=== PATIENT | female | born 1955 | race Caucasian/White ===

== ENCOUNTER 2018-03-16 16:52 | Inpatient (IN) ==
[2018-03-16 18:58] LABS: Basophils # 0.1 10*3/uL (0.0-0.2); Basophils % 0.5 % (0.0-0.8); Eosinophils % 0.3 % (0.00-10.9); Hematocrit 39.2 VOL% (35.7-47.0); Hemoglobin 12.7 GM/DL (12.0-16.0); Immature Granulocytes % 0.5 %; Immature Granulocytes Absolute 0.08 #; Lymphocytes # 3.1 10*3/uL (1.4-4.0); Lymphocytes % 21.4 % (21.3-54.2); Mean Corpuscular HGB Conc 32.4 GM/DL (32-36); Mean Corpuscular Hemoglobin 30 PG (27-34); Mean Platelet Volume 9.5 FL (9.6-12.0); Monocytes # 1.2 10*3/uL (0.11-0.8); Monocytes % 7.9 % (1.7-12.7); Neutrophils # 10.1 10*3/uL (1.4-7.4); Neutrophils % 69.4 % (38.7-73.9); Platelet Count 311 T/CUMM (130-400); Red Blood Count 4.31 MC/CUMM (3.8-5.5); Red Cell Distribution Width 14.6 % (9.3-17.3); White Blood Count 14.6 T/CUMM (4-12)
[2018-03-16 19:09] LABS: INR 2.5; PT Patient Result 25.1 SECS; Partial Thromboplastin Time 41.1 SECS (0-40)
[2018-03-16 19:23] LABS: Calcium 8.5 MG/DL (8.5-10.1); Osmolality,Calculated 266.2 MOS/KG (273-304); Potassium 4.1 MMOL/L (3.5-5.1)
[2018-03-16] MEDS ORDERED: ONDANSETRON 4 MG/2 ML VIAL IV STA (19:36)
[2018-03-16] MEDS ORDERED: HYDROmorphone 2 MG/1 ML VIAL IV STA (19:36)
[2018-03-16] MEDS ORDERED: ONDANSETRON 4 MG/2 ML VIAL IV PRN (20:11)
[2018-03-16 22:41] LABS: Apearance,Urine CLEAR (Clear); Bilirubin,Urine Negative (Negative); Blood, Urine Moderate mg/dL (Negative); Glucose,Urine (UA) Negative (Negative); Ketones,Urine Negative (Negative); Nitrite,Urine Negative (Negative); Protein,Urine Negative; RBC,Urine <1 /HPF (0-4); Squamous Epithelial Cell,Urine Occasional /HPF (0-10); Urine Color Straw (Yellow); Urine Specific Gravity 1.034 (1.001-1.035); Urine Urobilinogen < 2.0 EU/DL (0.2-1.0)
[2018-03-16] MEDS: traZODone 50 MG TABLET PO SCH (23:38)
[2018-03-16] MEDS: ROSUVASTATIN 20 MG TABLET PO SCH (23:39)
[2018-03-16] MEDS: POLYETHYLENE GLYCOL POWDER 17 GM PACK PO SCH (23:39)
[2018-03-16] MEDS: CYCLOBENZAPRINE 10 MG TABLET PO SCH (23:39)
[2018-03-16] MEDS: PREGABALIN 50 MG CAPSULE PO SCH (23:39)
[2018-03-16] MEDS: tiZANidine 4 MG TABLET PO SCH (23:39)
[2018-03-17 04:49] LABS: Basophils % 0.4 % (0.0-0.8); Eosinophils # 0.1 10*3/uL (0.0-0.87); Eosinophils % 0.9 % (0.00-10.9); Hemoglobin 13.2 GM/DL (12.0-16.0); Immature Granulocytes % 0.3 %; Immature Granulocytes Absolute 0.03 #; Lymphocytes # 2.1 10*3/uL (1.4-4.0); Lymphocytes % 20.6 % (21.3-54.2); Mean Corpuscular Hemoglobin 30 PG (27-34); Mean Corpuscular Volume 89.9 FL (87-102); Mean Platelet Volume 9.5 FL (9.6-12.0); Monocytes % 9.8 % (1.7-12.7); Platelet Count 309 T/CUMM (130-400); Red Blood Count 4.45 MC/CUMM (3.8-5.5); Red Cell Distribution Width 14.6 % (9.3-17.3); White Blood Count 10.3 T/CUMM (4-12)
[2018-03-17 05:01] LABS: INR 2.1
[2018-03-17 05:04] LABS: PT Patient Result 21.5 SECS
[2018-03-17] MEDS: CYCLOBENZAPRINE 10 MG TABLET PO SCH ×3 (05:13→21:07)
[2018-03-17] MEDS: tiZANidine 4 MG TABLET PO SCH ×3 (05:13→20:34)
[2018-03-17] MEDS: PANTOPRAZOLE 40 MG TABLET PO SCH (05:13)
[2018-03-17 05:15] LABS: Calcium 8.4 MG/DL (8.5-10.1); Osmolality,Calculated 277.5 MOS/KG (273-304); Potassium 3.7 MMOL/L (3.5-5.1)
[2018-03-17] MEDS ORDERED: METOPROLOL SUCCINATE XL 100 MG TABLET PO SCH (09:30)
[2018-03-17] MEDS ORDERED: METHYLPHENIDATE HCL 30 MG PO SCH (09:30)
[2018-03-17] MEDS ORDERED: DILTIAZEM CD 180 MG CAPSULE PO SCH (09:30)
[2018-03-17] MEDS: DOCUSATE SODIUM 100 MG/10 ML UDCUP PO SCH ×2 (11:28→11:34)
[2018-03-17] MEDS: GABAPENTIN 300 MG CAPSULE PO SCH ×2 (11:29→20:34)
[2018-03-17] MEDS: FOLIC ACID 1 MG TABLET PO SCH (11:29)
[2018-03-17] MEDS: POTASSIUM CHLORIDE 8 MEQ CAPSULE PO SCH (11:29)
[2018-03-17] MEDS: CETIRIZINE 10 MG TABLET PO SCH (11:29)
[2018-03-17] MEDS: FUROSEMIDE 20 MG TABLET PO SCH (11:29)
[2018-03-17] MEDS: ESCITALOPRAM 10 MG TABLET PO SCH (11:30)
[2018-03-17] MEDS: POLYVINYL ALCOHOL 1.4% OPH SOLN 15 ML BOTTLE BOTH EYES SCH ×2 (11:39→17:45)
[2018-03-17] MEDS: diphenhydrAMINE CAP 25 MG CAPSULE PO PRN (13:07)
[2018-03-17] MEDS ORDERED: diphenhydrAMINE CAP 25 MG CAPSULE PO ONE (14:33)
[2018-03-17] MEDS ORDERED: WARFARIN 2.5 MG TABLET PO SCH (17:00)
[2018-03-17] MEDS: MEPERIDINE 50 MG TABLET PO PRN (18:21)
[2018-03-17] MEDS: POLYETHYLENE GLYCOL POWDER 17 GM PACK PO SCH (20:34)
[2018-03-17] MEDS: ROSUVASTATIN 20 MG TABLET PO SCH (20:34)
[2018-03-17] MEDS: traZODone 50 MG TABLET PO SCH (20:34)
[2018-03-17] MEDS: PREGABALIN 50 MG CAPSULE PO SCH (20:34)
[2018-03-18] MEDS: MEPERIDINE 50 MG TABLET PO PRN ×3 (01:22→20:25)
[2018-03-18] MEDS: CYCLOBENZAPRINE 10 MG TABLET PO SCH ×3 (06:01→21:09)
[2018-03-18] MEDS: PANTOPRAZOLE 40 MG TABLET PO SCH (06:01)
[2018-03-18] MEDS: tiZANidine 4 MG TABLET PO SCH ×3 (06:02→20:19)
[2018-03-18 08:03] LABS: Basophils # 0.1 10*3/uL (0.0-0.2); Basophils % 0.4 % (0.0-0.8); Eosinophils # 0.2 10*3/uL (0.0-0.87); Eosinophils % 1.3 % (0.00-10.9); Hematocrit 37.9 VOL% (35.7-47.0); Hemoglobin 12.7 GM/DL (12.0-16.0); Immature Granulocytes % 0.5 %; Immature Granulocytes Absolute 0.08 #; Lymphocytes # 2.5 10*3/uL (1.4-4.0); Lymphocytes % 14.5 % (21.3-54.2); Mean Corpuscular HGB Conc 33.5 GM/DL (32-36); Mean Corpuscular Hemoglobin 30 PG (27-34); Mean Corpuscular Volume 89.4 FL (87-102); Monocytes # 1.5 10*3/uL (0.11-0.8); Monocytes % 8.6 % (1.7-12.7); Neutrophils # 12.7 10*3/uL (1.4-7.4); Neutrophils % 74.7 % (38.7-73.9); Platelet Count 326 T/CUMM (130-400); Red Blood Count 4.24 MC/CUMM (3.8-5.5); Red Cell Distribution Width 14.6 % (9.3-17.3); White Blood Count 16.9 T/CUMM (4-12)
[2018-03-18 08:11] LABS: INR 1.6; PT Patient Result 16.9 SECS
[2018-03-18 08:28] LABS: Calcium 8.7 MG/DL (8.5-10.1); Osmolality,Calculated 272.1 MOS/KG (273-304); Potassium 3.9 MMOL/L (3.5-5.1)
[2018-03-18] MEDS ORDERED: MEPERIDINE 50 MG TABLET PO PRN (08:42)
[2018-03-18] MEDS: POTASSIUM CHLORIDE 8 MEQ CAPSULE PO SCH (08:59)
[2018-03-18] MEDS: POLYVINYL ALCOHOL 1.4% OPH SOLN 15 ML BOTTLE BOTH EYES SCH ×2 (08:59→17:32)
[2018-03-18] MEDS: GABAPENTIN 300 MG CAPSULE PO SCH ×2 (09:00→20:19)
[2018-03-18] MEDS: CETIRIZINE 10 MG TABLET PO SCH (09:01)
[2018-03-18] MEDS: diphenhydrAMINE CAP 25 MG CAPSULE PO PRN (09:01)
[2018-03-18] MEDS: FUROSEMIDE 20 MG TABLET PO SCH (09:02)
[2018-03-18] MEDS: FOLIC ACID 1 MG TABLET PO SCH (09:02)
[2018-03-18] MEDS: DOCUSATE SODIUM 100 MG/10 ML UDCUP PO SCH (09:13)
[2018-03-18] MEDS: DILTIAZEM CD 240 MG CAPSULE PO SCH (10:51)
[2018-03-18] MEDS: METOPROLOL TARTRATE 50 MG TABLET PO SCH ×2 (10:52→20:19)
[2018-03-18] MEDS: ESCITALOPRAM 10 MG TABLET PO SCH (10:52)
[2018-03-18] MEDS ORDERED: WARFARIN 3 MG TABLET PO SCH (17:00)
[2018-03-18] MEDS: ROSUVASTATIN 20 MG TABLET PO SCH (20:19)
[2018-03-18] MEDS: PREGABALIN 50 MG CAPSULE PO SCH (20:19)
[2018-03-18] MEDS: traZODone 50 MG TABLET PO SCH (20:19)
[2018-03-18] MEDS: POLYETHYLENE GLYCOL POWDER 17 GM PACK PO SCH (20:19)
[2018-03-19] MEDS: MEPERIDINE 50 MG TABLET PO PRN ×2 (03:25→11:34)
[2018-03-19 04:38] LABS: Basophils # 0.1 10*3/uL (0.0-0.2); Basophils % 0.4 % (0.0-0.8); Eosinophils # 0.5 10*3/uL (0.0-0.87); Eosinophils % 3.1 % (0.00-10.9); Hematocrit 33.5 VOL% (35.7-47.0); Hemoglobin 10.9 GM/DL (12.0-16.0); Immature Granulocytes % 0.6 %; Immature Granulocytes Absolute 0.09 #; Lymphocytes # 2.8 10*3/uL (1.4-4.0); Lymphocytes % 18.8 % (21.3-54.2); Mean Corpuscular HGB Conc 32.5 GM/DL (32-36); Mean Corpuscular Hemoglobin 30 PG (27-34); Mean Corpuscular Volume 90.8 FL (87-102); Mean Platelet Volume 9.9 FL (9.6-12.0); Monocytes # 1.7 10*3/uL (0.11-0.8); Monocytes % 11.4 % (1.7-12.7); Neutrophils # 9.6 10*3/uL (1.4-7.4); Neutrophils % 65.7 % (38.7-73.9); Platelet Count 302 T/CUMM (130-400); Red Blood Count 3.69 MC/CUMM (3.8-5.5); Red Cell Distribution Width 14.6 % (9.3-17.3); White Blood Count 14.7 T/CUMM (4-12)
[2018-03-19 04:47] LABS: INR 1.5; PT Patient Result 15.6 SECS
[2018-03-19 05:14] LABS: Calcium 8.1 MG/DL (8.5-10.1); Osmolality,Calculated 267.2 MOS/KG (273-304); Potassium 3.1 MMOL/L (3.5-5.1)
[2018-03-19] MEDS: tiZANidine 4 MG TABLET PO SCH ×2 (05:44→13:52)
[2018-03-19] MEDS: PANTOPRAZOLE 40 MG TABLET PO SCH (05:44)
[2018-03-19] MEDS: CYCLOBENZAPRINE 10 MG TABLET PO SCH ×2 (05:44→13:51)
[2018-03-19] MEDS ORDERED: METHOTREXATE 2.5 MG TABLET PO SCH (09:00)
[2018-03-19] MEDS: DILTIAZEM CD 240 MG CAPSULE PO SCH (09:05)
[2018-03-19] MEDS: CETIRIZINE 10 MG TABLET PO SCH (09:06)
[2018-03-19] MEDS: FOLIC ACID 1 MG TABLET PO SCH (09:06)
[2018-03-19] MEDS: ESCITALOPRAM 10 MG TABLET PO SCH (09:06)
[2018-03-19] MEDS: DOCUSATE SODIUM 100 MG/10 ML UDCUP PO SCH (09:06)
[2018-03-19] MEDS: POTASSIUM CHLORIDE 8 MEQ CAPSULE PO SCH (09:06)
[2018-03-19] MEDS: FUROSEMIDE 20 MG TABLET PO SCH (09:06)
[2018-03-19] MEDS: METOPROLOL TARTRATE 50 MG TABLET PO SCH (09:06)
[2018-03-19] MEDS: GABAPENTIN 300 MG CAPSULE PO SCH (09:07)
[2018-03-19] MEDS: POLYVINYL ALCOHOL 1.4% OPH SOLN 15 ML BOTTLE BOTH EYES SCH (09:09)
[2018-03-19] MEDS ORDERED: POTASSIUM CHLORIDE 20 MEQ TABLET PO ONE (09:24)
[2018-03-19 11:26] VITALS: BP 118/60
== END 2018-03-19 14:45 | DRG 563 ==
LOC: EDUNIT# → N.ED 16:52 → N.EDINP 20:06 → N.3E 21:40
PROVIDERS: ADMIT Internal Medicine; ATTEND Internal Medicine

== ENCOUNTER 2020-09-29 08:43 | Inpatient (IN) ==
[2020-09-29 09:48] LABS: Basophils % 0.5 % (0.0-0.8); Hematocrit 40.1 VOL% (35.7-47.0); Hemoglobin 13.1 GM/DL (12.0-16.0); Immature Granulocytes Absolute 0.04 #; Lymphocytes # 1.9 10*3/uL (1.4-4.0); Lymphocytes % 49.7 % (21.3-54.2); Mean Corpuscular HGB Conc 32.7 GM/DL (32-36); Mean Corpuscular Volume 90.5 FL (87-102); Mean Platelet Volume 9.5 FL (9.6-12.0); Monocytes % 10.4 % (1.7-12.7); Neutrophils % 38.4 % (38.7-73.9); Platelet Count 210 T/CUMM (130-400); Red Blood Count 4.43 MC/CUMM (3.8-5.5); Red Cell Distribution Width 14.3 % (9.3-17.3); White Blood Count 3.8 T/CUMM (4-12)
[2020-09-29] MEDS ORDERED: PIPERACILLIN/TAZOBACTAM 3,375 MG in SODIUM CHLORIDE 0.9% 100 ML IV STA (09:59)
[2020-09-29 10:08] LABS: Atypical Lymphocytes Few; Hypochromasia 1+; Lymphocytes 46 % (20-55); Microcytosis Slight; Platelet Estimate Adequate; Segmented Neutrophils 48 % (50-85); Total Cells Counted 100
[2020-09-29 10:16] LABS: PT Patient Result 65.6 SECS (9.8-11.9); Partial Thromboplastin Time 98.2 SECS (23.9-33.8)
[2020-09-29 10:51] LABS: INR 6.8
[2020-09-29 10:54] LABS: Bacteria,Urine Moderate /HPF (Few); Bilirubin,Urine Negative (Negative); Blood, Urine Small mg/dL (Negative); Glucose,Urine (UA) Negative (Negative); Ketones,Urine 5 mg/dL (Negative); Mucus,Urine Occasional /LPF (Occasional); Nitrite,Urine Negative (Negative); Protein,Urine Negative; Squamous Epithelial Cell,Urine Occasional /HPF (0-10); Urine Appearance CLOUDY (Clear); Urine Color Amber (Yellow); Urine Specific Gravity 1.018 (1.001-1.035); Urine Urobilinogen < 2.0 EU/DL (0.2-1.0); WBC,Urine 37 /HPF (0-6)
[2020-09-29 11:01] LABS: Albumin 2.8 G/DL (3.4-5.0); Bilirubin,Total 0.5 MG/DL (0.2-1.0); Calcium 8.8 MG/DL (8.5-10.1); Osmolality,Calculated 269.1 MOS/KG (273-304); Thyroid Stimulating Hormone 0.423 uIU/ml (0.358-3.74); Total Protein 7.6 G/DL (6.4-8.3)
[2020-09-29] MEDS ORDERED: ONDANSETRON 4 MG/2 ML VIAL IV PRN (11:34)
[2020-09-29] MEDS ORDERED: DOCUSATE SODIUM 100 MG CAPSULE PO PRN (11:34)
[2020-09-29] MEDS ORDERED: GLUCAGON 1 MG VIAL IM PRN (11:34)
[2020-09-29] MEDS ORDERED: DEXTROSE 50% 25 GM/50 ML VIAL IV PRN (11:34)
[2020-09-29] MEDS ORDERED: LACTULOSE 20 GM/30 ML UDCUP PO PRN (11:34)
[2020-09-29] MEDS: PIPERACILLIN/TAZOBACTAM 3,375 MG in SODIUM CHLORIDE 0.9% 100 ML IV SCH (18:09)
[2020-09-29] MEDS: ROSUVASTATIN 20 MG TABLET PO SCH (21:30)
[2020-09-29] MEDS: ASCORBIC ACID 500 MG TABLET PO SCH (21:30)
[2020-09-30] MEDS: ACETAMINOPHEN 325 MG TABLET PO PRN (01:29)
[2020-09-30 01:44] LABS: Albumin 2.6 G/DL (3.4-5.0); Bilirubin,Total 0.6 MG/DL (0.2-1.0); Calcium 8.4 MG/DL (8.5-10.1); Ferritin 1532.8 ng/ml (8-252); Osmolality,Calculated 267.1 MOS/KG (273-304); Risk Ratio 3.09
[2020-09-30 01:46] LABS: PT Patient Result 58.2 SECS (9.8-11.9)
[2020-09-30 02:02] LABS: Basophils % 0.2 % (0.0-0.8); Hematocrit 38.9 VOL% (35.7-47.0); Hemoglobin 12.8 GM/DL (12.0-16.0); Immature Granulocytes % 1.2 %; Immature Granulocytes Absolute 0.06 #; Lymphocytes # 1.6 10*3/uL (1.4-4.0); Mean Corpuscular HGB Conc 32.9 GM/DL (32-36); Mean Platelet Volume 9.7 FL (9.6-12.0); Monocytes % 13.2 % (1.7-12.7); Neutrophils % 53.4 % (38.7-73.9); Platelet Count 227 T/CUMM (130-400); Red Blood Count 4.32 MC/CUMM (3.8-5.5); Red Cell Distribution Width 13.8 % (9.3-17.3); White Blood Count 5.1 T/CUMM (4-12)
[2020-09-30 02:29] LABS: Sedimentation Rate-Westergren 60 MM/HR (0-30)
[2020-09-30] MEDS ORDERED: METOPROLOL TARTRATE 5 MG/5 ML VIAL IV ONE (02:56)
[2020-09-30] MEDS: PIPERACILLIN/TAZOBACTAM 3,375 MG in SODIUM CHLORIDE 0.9% 100 ML IV SCH ×3 (03:09→18:21)
[2020-09-30] MEDS: METOPROLOL TARTRATE 5 MG/5 ML VIAL IV SCH ×3 (05:58→18:20)
[2020-09-30] MEDS ORDERED: POTASSIUM CHLORIDE RIDER 10 MEQ in PREMIX 1 EACH IV PRN (06:57)
[2020-09-30] MEDS: POTASSIUM CHLORIDE 20 MEQ TABLET PO PRN ×4 (08:19→20:50)
[2020-09-30] MEDS: ESCITALOPRAM 10 MG TABLET PO SCH (08:19)
[2020-09-30] MEDS: PANTOPRAZOLE 40 MG TABLET PO SCH (08:19)
[2020-09-30] MEDS: DEXAMETHASONE 4 MG/1 ML VIAL IV SCH (08:19)
[2020-09-30] MEDS: ZINC SULFATE 220 MG CAPSULE PO SCH (08:19)
[2020-09-30] MEDS: ASCORBIC ACID 500 MG TABLET PO SCH ×2 (08:19→20:51)
[2020-09-30] MEDS: VANCOMYCIN INJ 1,000 MG in SODIUM CHLORIDE 0.9% 250 ML IV SCH (15:21)
[2020-09-30] MEDS ORDERED: DILTIAZEM CD 240 MG CAPSULE PO SCH (16:00)
[2020-09-30] MEDS: DILTIAZEM CD 120 MG CAPSULE PO SCH (16:16)
[2020-09-30] MEDS: ROSUVASTATIN 20 MG TABLET PO SCH (20:50)
[2020-09-30] MEDS: METOPROLOL TARTRATE 50 MG TABLET PO SCH (20:51)
[2020-10-01] MEDS: METOPROLOL TARTRATE 5 MG/5 ML VIAL IV SCH ×4 (00:20→19:21)
[2020-10-01] MEDS: PIPERACILLIN/TAZOBACTAM 3,375 MG in SODIUM CHLORIDE 0.9% 100 ML IV SCH ×3 (02:03→19:22)
[2020-10-01] MEDS: VANCOMYCIN INJ 1,000 MG in SODIUM CHLORIDE 0.9% 250 ML IV SCH (02:33)
[2020-10-01 06:38] LABS: Basophils % 0.4 % (0.0-0.8); Hematocrit 38.8 VOL% (35.7-47.0); Hemoglobin 12.2 GM/DL (12.0-16.0); Immature Granulocytes % 2.1 %; Lymphocytes # 1.1 10*3/uL (1.4-4.0); Lymphocytes % 24.1 % (21.3-54.2); Mean Corpuscular HGB Conc 31.4 GM/DL (32-36); Mean Corpuscular Volume 94.4 FL (87-102); Mean Platelet Volume 9.6 FL (9.6-12.0); Monocytes % 9.9 % (1.7-12.7); Neutrophils % 63.5 % (38.7-73.9); Platelet Count 285 T/CUMM (130-400); Red Blood Count 4.11 MC/CUMM (3.8-5.5); Red Cell Distribution Width 13.6 % (9.3-17.3); White Blood Count 4.7 T/CUMM (4-12)
[2020-10-01 07:10] LABS: INR 6.3; PT Patient Result 60.9 SECS (9.8-11.9)
[2020-10-01 07:16] LABS: Albumin 2.5 G/DL (3.4-5.0); Bilirubin,Total 0.7 MG/DL (0.2-1.0); Calcium 8.5 MG/DL (8.5-10.1); Ferritin 1513.2 ng/ml (8-252); Osmolality,Calculated 274.7 MOS/KG (273-304)
[2020-10-01] MEDS: METOPROLOL TARTRATE 50 MG TABLET PO SCH ×2 (08:11→22:01)
[2020-10-01] MEDS: ASCORBIC ACID 500 MG TABLET PO SCH ×2 (08:11→22:00)
[2020-10-01] MEDS: POTASSIUM CHLORIDE 20 MEQ TABLET PO PRN ×2 (08:11→11:00)
[2020-10-01] MEDS: ZINC SULFATE 220 MG CAPSULE PO SCH (08:11)
[2020-10-01] MEDS: PANTOPRAZOLE 40 MG TABLET PO SCH (08:11)
[2020-10-01] MEDS: DEXAMETHASONE 4 MG/1 ML VIAL IV SCH (08:11)
[2020-10-01] MEDS: ESCITALOPRAM 10 MG TABLET PO SCH (08:12)
[2020-10-01] MEDS: DILTIAZEM CD 120 MG CAPSULE PO SCH (08:12)
[2020-10-01] MEDS: DILTIAZEM CD 240 MG CAPSULE PO SCH (08:22)
[2020-10-01] MEDS ORDERED: SODIUM CHLORIDE 0.9% 250 ML IV ONE (14:01)
[2020-10-01] MEDS: ROSUVASTATIN 20 MG TABLET PO SCH (22:00)
[2020-10-01] MEDS: guaiFENesin/DM ER 600-30 MG TABLET PO PRN (22:01)
[2020-10-01] MEDS: ACETAMINOPHEN 325 MG TABLET PO PRN (22:01)
[2020-10-02] MEDS: METOPROLOL TARTRATE 5 MG/5 ML VIAL IV SCH ×4 (01:00→18:12)
[2020-10-02] MEDS: PIPERACILLIN/TAZOBACTAM 3,375 MG in SODIUM CHLORIDE 0.9% 100 ML IV SCH ×3 (01:15→18:31)
[2020-10-02 06:37] LABS: Basophils % 0.2 % (0.0-0.8); Hematocrit 33.8 VOL% (35.7-47.0); Hemoglobin 11.2 GM/DL (12.0-16.0); Immature Granulocytes Absolute 0.19 #; Lymphocytes # 0.9 10*3/uL (1.4-4.0); Lymphocytes % 9.7 % (21.3-54.2); Mean Corpuscular HGB Conc 33.1 GM/DL (32-36); Mean Corpuscular Volume 88.9 FL (87-102); Mean Platelet Volume 9.3 FL (9.6-12.0); Monocytes % 8.5 % (1.7-12.7); Neutrophils % 79.6 % (38.7-73.9); Platelet Count 359 T/CUMM (130-400); Red Cell Distribution Width 13.7 % (9.3-17.3); White Blood Count 9.4 T/CUMM (4-12)
[2020-10-02 07:05] LABS: Albumin 2.4 G/DL (3.4-5.0); Bilirubin,Total 0.9 MG/DL (0.2-1.0); Calcium 8.5 MG/DL (8.5-10.1); Osmolality,Calculated 275.7 MOS/KG (273-304); Total Protein 6.5 G/DL (6.4-8.3)
[2020-10-02 07:10] LABS: PT Patient Result 71.5 SECS (9.8-11.9)
[2020-10-02 07:21] LABS: INR 7.4
[2020-10-02] MEDS ORDERED: PHYTONADIONE 10 MG/1 ML AMP SUBCUT ONE ×2 (08:23→11:49)
[2020-10-02] MEDS ORDERED: SODIUM CHLORIDE 0.9% 1,000 ML IV PRN (08:24)
[2020-10-02] MEDS: ZINC SULFATE 220 MG CAPSULE PO SCH (09:07)
[2020-10-02] MEDS: DILTIAZEM CD 240 MG CAPSULE PO SCH (09:07)
[2020-10-02] MEDS: ASCORBIC ACID 500 MG TABLET PO SCH ×2 (09:08→21:28)
[2020-10-02] MEDS: POTASSIUM CHLORIDE 20 MEQ TABLET PO PRN ×4 (09:08→18:12)
[2020-10-02] MEDS: METOPROLOL TARTRATE 50 MG TABLET PO SCH ×2 (09:09→21:30)
[2020-10-02] MEDS: PANTOPRAZOLE 40 MG TABLET PO SCH ×2 (09:09→21:30)
[2020-10-02] MEDS: ESCITALOPRAM 10 MG TABLET PO SCH (09:09)
[2020-10-02] MEDS: DEXAMETHASONE 4 MG/1 ML VIAL IV SCH (09:09)
[2020-10-02] MEDS: guaiFENesin/DM ER 600-30 MG TABLET PO PRN (21:30)
[2020-10-03] MEDS: METOPROLOL TARTRATE 5 MG/5 ML VIAL IV SCH ×4 (00:10→18:35)
[2020-10-03 01:31] LABS: Basophils % 0.3 % (0.0-0.8); Hematocrit 30.9 VOL% (35.7-47.0); Hemoglobin 10.4 GM/DL (12.0-16.0); Immature Granulocytes % 4.4 %; Immature Granulocytes Absolute 0.42 #; Lymphocytes % 10.2 % (21.3-54.2); Mean Corpuscular HGB Conc 33.7 GM/DL (32-36); Mean Corpuscular Volume 87.5 FL (87-102); Mean Platelet Volume 9.2 FL (9.6-12.0); Monocytes % 8.4 % (1.7-12.7); Neutrophils % 76.7 % (38.7-73.9); Platelet Count 380 T/CUMM (130-400); Red Blood Count 3.53 MC/CUMM (3.8-5.5); Red Cell Distribution Width 13.6 % (9.3-17.3); White Blood Count 9.4 T/CUMM (4-12)
[2020-10-03 01:38] LABS: INR 2.5; PT Patient Result 25.7 SECS (9.8-11.9)
[2020-10-03] MEDS: POTASSIUM CHLORIDE 20 MEQ TABLET PO PRN ×2 (02:11→08:01)
[2020-10-03] MEDS: PIPERACILLIN/TAZOBACTAM 3,375 MG in SODIUM CHLORIDE 0.9% 100 ML IV SCH ×3 (04:22→18:36)
[2020-10-03 07:11] LABS: INR 1.6; PT Patient Result 16.7 SECS (9.8-11.9)
[2020-10-03 07:16] LABS: Albumin 2.9 G/DL (3.4-5.0); Bilirubin,Total 0.9 MG/DL (0.2-1.0); Calcium 8.7 MG/DL (8.5-10.1); Osmolality,Calculated 273.7 MOS/KG (273-304); Total Protein 7.1 G/DL (6.4-8.3)
[2020-10-03] MEDS: guaiFENesin/DM ER 600-30 MG TABLET PO PRN (07:58)
[2020-10-03] MEDS: PANTOPRAZOLE 40 MG TABLET PO SCH ×2 (07:59→21:11)
[2020-10-03] MEDS: ESCITALOPRAM 10 MG TABLET PO SCH (07:59)
[2020-10-03] MEDS: METOPROLOL TARTRATE 50 MG TABLET PO SCH ×2 (07:59→21:10)
[2020-10-03] MEDS: DILTIAZEM CD 240 MG CAPSULE PO SCH (07:59)
[2020-10-03] MEDS: DEXAMETHASONE 4 MG/1 ML VIAL IV SCH (07:59)
[2020-10-03] MEDS: ASCORBIC ACID 500 MG TABLET PO SCH ×2 (07:59→21:11)
[2020-10-03] MEDS: ZINC SULFATE 220 MG CAPSULE PO SCH (08:00)
[2020-10-03] MEDS: CETIRIZINE 10 MG TABLET PO SCH (08:05)
[2020-10-03] MEDS: MENTHOL/ZINC OXIDE OINT 71 GM JAR TOP SCH ×2 (13:36→21:10)
[2020-10-03] MEDS ORDERED: REMDESIVIR 200 MG in SODIUM CHLORIDE 0.9% 210 ML IV ONE (15:00)
[2020-10-03] MEDS: VANCOMYCIN INJ 1,250 MG in SODIUM CHLORIDE 0.9% 250 ML IV SCH (17:28)
[2020-10-03] MEDS ORDERED: ENOXAPARIN 40 MG/0.4 ML SYRINGE SUBCUT SCH (21:00)
[2020-10-03] MEDS ORDERED: APIXABAN 5 MG TABLET PO SCH (21:00)
[2020-10-04] MEDS: METOPROLOL TARTRATE 5 MG/5 ML VIAL IV SCH ×4 (00:40→19:06)
[2020-10-04] MEDS: PIPERACILLIN/TAZOBACTAM 3,375 MG in SODIUM CHLORIDE 0.9% 100 ML IV SCH ×4 (02:15→19:07)
[2020-10-04 05:55] LABS: INR 1.2; PT Patient Result 12.9 SECS (9.8-11.9)
[2020-10-04] MEDS: VANCOMYCIN INJ 1,250 MG in SODIUM CHLORIDE 0.9% 250 ML IV SCH ×2 (06:36→18:02)
[2020-10-04 06:47] LABS: Basophils # 0.1 10*3/uL (0.0-0.2); Basophils % 0.5 % (0.0-0.8); Hematocrit 30.6 VOL% (35.7-47.0); Hemoglobin 10.4 GM/DL (12.0-16.0); Immature Granulocytes % 6.6 %; Immature Granulocytes Absolute 0.77 #; Lymphocytes # 1.9 10*3/uL (1.4-4.0); Mean Corpuscular Volume 86.4 FL (87-102); Mean Platelet Volume 9.3 FL (9.6-12.0); Monocytes % 10.2 % (1.7-12.7); NRBC # 0.06 10*3/uL; Neutrophils % 66.7 % (38.7-73.9); Platelet Count 400 T/CUMM (130-400); Red Blood Count 3.54 MC/CUMM (3.8-5.5); White Blood Count 11.7 T/CUMM (4-12)
[2020-10-04 07:07] LABS: Hypochromasia 1+; Lymphocytes 20 % (20-55); Microcytosis 1+; Nucleated Red Blood Cells 1 (0-5); Platelet Estimate Adequate; Segmented Neutrophils 74 % (50-85); Total Cells Counted 100
[2020-10-04] MEDS: PANTOPRAZOLE 40 MG TABLET PO SCH ×2 (08:37→20:47)
[2020-10-04] MEDS: MENTHOL/ZINC OXIDE OINT 71 GM JAR TOP SCH ×2 (08:37→20:47)
[2020-10-04] MEDS: METOPROLOL TARTRATE 50 MG TABLET PO SCH ×2 (08:37→20:47)
[2020-10-04] MEDS: ASCORBIC ACID 500 MG TABLET PO SCH ×2 (08:37→20:47)
[2020-10-04] MEDS: DEXAMETHASONE 4 MG/1 ML VIAL IV SCH (08:37)
[2020-10-04] MEDS: ESCITALOPRAM 10 MG TABLET PO SCH (08:37)
[2020-10-04] MEDS: ZINC SULFATE 220 MG CAPSULE PO SCH (08:37)
[2020-10-04] MEDS: guaiFENesin/DM ER 600-30 MG TABLET PO PRN (08:37)
[2020-10-04] MEDS: CETIRIZINE 10 MG TABLET PO SCH (08:37)
[2020-10-04] MEDS: DILTIAZEM CD 240 MG CAPSULE PO SCH (08:37)
[2020-10-04] MEDS: REMDESIVIR 100 MG in SODIUM CHLORIDE 0.9% 230 ML IV SCH (08:52)
[2020-10-04] MEDS: APIXABAN 2.5 MG TABLET PO SCH (20:47)
[2020-10-05] MEDS: METOPROLOL TARTRATE 5 MG/5 ML VIAL IV SCH ×4 (00:12→18:29)
[2020-10-05] MEDS: PIPERACILLIN/TAZOBACTAM 3,375 MG in SODIUM CHLORIDE 0.9% 100 ML IV SCH (02:30)
[2020-10-05 06:10] LABS: Basophils # 0.1 10*3/uL (0.0-0.2); Basophils % 0.4 % (0.0-0.8); Hematocrit 29.8 VOL% (35.7-47.0); Hemoglobin 10.3 GM/DL (12.0-16.0); Immature Granulocytes % 6.6 %; Immature Granulocytes Absolute 0.78 #; Lymphocytes # 2.1 10*3/uL (1.4-4.0); Lymphocytes % 17.5 % (21.3-54.2); Mean Corpuscular HGB Conc 34.6 GM/DL (32-36); Mean Corpuscular Volume 85.1 FL (87-102); Mean Platelet Volume 9.5 FL (9.6-12.0); Monocytes % 10.5 % (1.7-12.7); NRBC # 0.11 10*3/uL; Platelet Count 469 T/CUMM (130-400); Red Cell Distribution Width 13.8 % (9.3-17.3); White Blood Count 11.8 T/CUMM (4-12)
[2020-10-05 06:22] LABS: INR 1.2; PT Patient Result 12.3 SECS (9.8-11.9)
[2020-10-05] MEDS: VANCOMYCIN INJ 1,250 MG in SODIUM CHLORIDE 0.9% 250 ML IV SCH (06:41)
[2020-10-05 07:16] LABS: Band Neutrophils 3 % (0-10); Lymphocytes 18 % (20-55); Metamyelocytes 3 %; Nucleated Red Blood Cells 1 (0-5); Platelet Estimate Increased; Segmented Neutrophils 65 % (50-85); Total Cells Counted 100
[2020-10-05] MEDS: MENTHOL/ZINC OXIDE OINT 71 GM JAR TOP SCH ×2 (09:17→21:22)
[2020-10-05] MEDS: DEXAMETHASONE 4 MG/1 ML VIAL IV SCH (09:17)
[2020-10-05] MEDS: DILTIAZEM CD 240 MG CAPSULE PO SCH (09:17)
[2020-10-05] MEDS: CETIRIZINE 10 MG TABLET PO SCH (09:18)
[2020-10-05] MEDS: guaiFENesin/DM ER 600-30 MG TABLET PO PRN ×2 (09:18→21:22)
[2020-10-05] MEDS: APIXABAN 2.5 MG TABLET PO SCH ×2 (09:18→21:22)
[2020-10-05] MEDS: ASCORBIC ACID 500 MG TABLET PO SCH ×2 (09:18→21:22)
[2020-10-05] MEDS: ZINC SULFATE 220 MG CAPSULE PO SCH (09:18)
[2020-10-05] MEDS: ESCITALOPRAM 10 MG TABLET PO SCH (09:18)
[2020-10-05] MEDS: PANTOPRAZOLE 40 MG TABLET PO SCH ×2 (09:19→21:22)
[2020-10-05] MEDS: METOPROLOL TARTRATE 50 MG TABLET PO SCH ×2 (09:19→21:22)
[2020-10-05] MEDS: REMDESIVIR 100 MG in SODIUM CHLORIDE 0.9% 230 ML IV SCH (12:49)
[2020-10-06] MEDS: METOPROLOL TARTRATE 5 MG/5 ML VIAL IV SCH ×4 (00:15→21:52)
[2020-10-06 08:29] LABS: Albumin 2.6 G/DL (3.4-5.0); Bilirubin,Total 1.6 MG/DL (0.2-1.0); Calcium 8.1 MG/DL (8.5-10.1); Ferritin 2162.7 ng/ml (8-252); Osmolality,Calculated 276.8 MOS/KG (273-304); Total Protein 6.4 G/DL (6.4-8.3)
[2020-10-06] MEDS ORDERED: POTASSIUM CHLORIDE 20 MEQ TABLET PO ONE ×2 (08:36→11:00)
[2020-10-06] MEDS: PANTOPRAZOLE 40 MG TABLET PO SCH ×2 (10:10→21:52)
[2020-10-06] MEDS: ESCITALOPRAM 10 MG TABLET PO SCH (10:10)
[2020-10-06] MEDS: APIXABAN 2.5 MG TABLET PO SCH ×2 (10:10→21:51)
[2020-10-06] MEDS: ASCORBIC ACID 500 MG TABLET PO SCH ×2 (10:10→21:52)
[2020-10-06] MEDS: LOSARTAN 25 MG TABLET PO SCH (10:10)
[2020-10-06] MEDS: ZINC SULFATE 220 MG CAPSULE PO SCH (10:10)
[2020-10-06] MEDS: CETIRIZINE 10 MG TABLET PO SCH (10:10)
[2020-10-06] MEDS: DILTIAZEM CD 240 MG CAPSULE PO SCH (10:11)
[2020-10-06] MEDS: MENTHOL/ZINC OXIDE OINT 71 GM JAR TOP SCH ×2 (10:12→21:51)
[2020-10-06] MEDS: DEXAMETHASONE 4 MG/1 ML VIAL IV SCH (10:12)
[2020-10-06] MEDS: REMDESIVIR 100 MG in SODIUM CHLORIDE 0.9% 230 ML IV SCH (10:13)
[2020-10-06] MEDS: METOPROLOL TARTRATE 50 MG TABLET PO SCH ×2 (10:20→21:51)
[2020-10-06] MEDS: guaiFENesin/DM ER 600-30 MG TABLET PO PRN (21:51)
[2020-10-07] MEDS: METOPROLOL TARTRATE 5 MG/5 ML VIAL IV SCH ×4 (04:40→22:25)
[2020-10-07 05:58] LABS: Calcium 8.3 MG/DL (8.5-10.1); Osmolality,Calculated 277.8 MOS/KG (273-304)
[2020-10-07] MEDS: guaiFENesin/DM ER 600-30 MG TABLET PO PRN (07:46)
[2020-10-07] MEDS: ASCORBIC ACID 500 MG TABLET PO SCH ×2 (08:01→20:05)
[2020-10-07] MEDS: APIXABAN 2.5 MG TABLET PO SCH ×2 (08:02→20:05)
[2020-10-07] MEDS: CETIRIZINE 10 MG TABLET PO SCH (08:02)
[2020-10-07] MEDS: LOSARTAN 25 MG TABLET PO SCH (08:02)
[2020-10-07] MEDS: ZINC SULFATE 220 MG CAPSULE PO SCH (08:02)
[2020-10-07] MEDS: DILTIAZEM CD 240 MG CAPSULE PO SCH (08:03)
[2020-10-07] MEDS: PANTOPRAZOLE 40 MG TABLET PO SCH ×2 (08:03→20:05)
[2020-10-07] MEDS: METOPROLOL TARTRATE 50 MG TABLET PO SCH ×2 (08:03→20:05)
[2020-10-07] MEDS: MENTHOL/ZINC OXIDE OINT 71 GM JAR TOP SCH ×2 (08:03→20:05)
[2020-10-07] MEDS: POTASSIUM CHLORIDE 20 MEQ TABLET PO PRN (08:03)
[2020-10-07] MEDS: ESCITALOPRAM 10 MG TABLET PO SCH (08:04)
[2020-10-07] MEDS: DEXAMETHASONE 4 MG/1 ML VIAL IV SCH (08:05)
[2020-10-07] MEDS: REMDESIVIR 100 MG in SODIUM CHLORIDE 0.9% 230 ML IV SCH (08:06)
[2020-10-07] MEDS ORDERED: POTASSIUM CHLORIDE 20 MEQ TABLET PO ONE (08:30)
[2020-10-08] MEDS: METOPROLOL TARTRATE 5 MG/5 ML VIAL IV SCH ×2 (04:53→11:05)
[2020-10-08 08:55] LABS: Basophils % 0.2 % (0.0-0.8); Hematocrit 33.7 VOL% (35.7-47.0); Hemoglobin 11.4 GM/DL (12.0-16.0); Immature Granulocytes Absolute 0.48 #; Lymphocytes # 1.9 10*3/uL (1.4-4.0); Lymphocytes % 15.5 % (21.3-54.2); Mean Corpuscular HGB Conc 33.8 GM/DL (32-36); Mean Corpuscular Volume 87.1 FL (87-102); Mean Platelet Volume 9.6 FL (9.6-12.0); Monocytes % 13.3 % (1.7-12.7); NRBC # 0.03 10*3/uL; Platelet Count 560 T/CUMM (130-400); Red Blood Count 3.87 MC/CUMM (3.8-5.5); Red Cell Distribution Width 14.6 % (9.3-17.3); White Blood Count 12.1 T/CUMM (4-12)
[2020-10-08 09:21] LABS: Calcium 8.3 MG/DL (8.5-10.1); Osmolality,Calculated 278.8 MOS/KG (273-304)
[2020-10-08] MEDS: CETIRIZINE 10 MG TABLET PO SCH (09:25)
[2020-10-08] MEDS: METOPROLOL TARTRATE 50 MG TABLET PO SCH (09:25)
[2020-10-08] MEDS: MENTHOL/ZINC OXIDE OINT 71 GM JAR TOP SCH (09:25)
[2020-10-08] MEDS: ESCITALOPRAM 10 MG TABLET PO SCH (09:25)
[2020-10-08] MEDS: ZINC SULFATE 220 MG CAPSULE PO SCH (09:25)
[2020-10-08] MEDS: LOSARTAN 25 MG TABLET PO SCH (09:25)
[2020-10-08] MEDS: APIXABAN 2.5 MG TABLET PO SCH (09:25)
[2020-10-08] MEDS: DILTIAZEM CD 240 MG CAPSULE PO SCH (09:25)
[2020-10-08] MEDS: DEXAMETHASONE 4 MG/1 ML VIAL IV SCH (09:25)
[2020-10-08] MEDS: ASCORBIC ACID 500 MG TABLET PO SCH (09:25)
[2020-10-08] MEDS: PANTOPRAZOLE 40 MG TABLET PO SCH (11:05)
[2020-10-08 11:32] VITALS: BP 124/58
== END 2020-10-08 14:15 | DRG 177 ==
LOC: EDUNIT# → EDBD → N.ED 08:43 → SUATTDRO 11:34 → N.EDINP 11:34 → N.CC 17:27 → N.2E 10-01 16:50
PROVIDERS: ADMIT Internal Medicine; ATTEND Family Medicine